=== PATIENT | female | born 1975 | race Caucasian/White ===

== ENCOUNTER → 2017-10-10 | Outpatient (CLI) | payer OTHER | END | disposition home or self-care (01) | LOC: SONOGRAMA 16:07 | DX: M75.82 Other shoulder lesions, left shoulder (principal); R10.9 Unspecified abdominal pain ==

== ENCOUNTER → 2017-10-11 | Outpatient (CLI) | payer OTHER | END | disposition home or self-care (01) | LOC: SONOGRAMA 12:30 | DX: R10.9 Unspecified abdominal pain (principal) ==

== ENCOUNTER 2020-05-13 15:18 | Outpatient (CLI) | payer OTHER | END 2020-05-13 15:29 | disposition home or self-care (01) | LOC: RAD 15:18 | PROVIDERS: ATTEND Surgery Plastic and Reconstructive Surgery | DX: Z01.811 Encounter for preprocedural respiratory examination (principal) ==

== ENCOUNTER → 2020-05-18 13:18 | Outpatient (CLI) | payer OTHER | END | disposition home or self-care (01) | LOC: EKG 13:18 | PROVIDERS: ATTEND Surgery Plastic and Reconstructive Surgery | DX: Z01.810 Encounter for preprocedural cardiovascular examination (principal) ==